=== PATIENT | male | born 1960 | race African-American/Black ===

== ENCOUNTER 2021-02-17 05:42 | Emergency (ER) | payer SELFPAY ==
[~2021-02-17] VITALS: Ht 177.8 cm; Wt 80.0 kg
[2021-02-17] MEDS ORDERED: ACETAMINOPHEN 325MG TABLET PO ONE (06:30)
[2021-02-17] MEDS ORDERED: TETANUS, DIPHTHERIA, PERTUSSIS VAC/PF 0.5ML (>7YR OLD) IM ONE (08:30)
[2021-02-17] MEDS ORDERED: TOPUD PO (08:36)
[2021-02-17 11:05] VITALS: BP 174/84
== END 2021-02-17 11:05 ==
LOC: ER 05:42 → EDBD 05:42 → ER 11:05
DX: S02.2XXB Fracture of nasal bones, initial encounter for open fracture (principal); S02.842A Fracture of lateral orbital wall, left side, initial encounter for closed fracture; S63.114A Dislocation of metacarpophalangeal joint of right thumb, initial encounter; S80.12XA Contusion of left lower leg, initial encounter; S00.81XA Abrasion of other part of head, initial encounter; R07.81 Pleurodynia; V43.52XA Car driver injured in collision with other type car in traffic accident, initial encounter; Y93.89 Activity, other specified; Y92.488 Other paved roadways as the place of occurrence of the external cause; I10 Essential (primary) hypertension; E11.9 Type 2 diabetes mellitus without complications; Z23 Encounter for immunization
CPT/HCPCS: 12011; 70450; 70486; 71111; 73120; 73130; 73502; 73590; 73700; 82962; 90471; 90715; 99285; Z7610